=== PATIENT | female | born 1945 | race Caucasian/White ===

== ENCOUNTER → 2017-07-22 | Outpatient (CLI) | payer MEDICARE, OTHER ==
--- NOTE | 2017-07-22 15:49 | WOMENS IMAGING REPORT ---
EXAM DESCRIPTION: BILAT SCREENING MAMMO W/CAD COMPLETED DATE/TIME: 07/22/2017 1:43 pm REASON FOR STUDY: SCREENING MAMMO Z12.31 ENCNTR SCREEN MAMMOGRAM FOR MALIGNANT NEOPLASM OF RASHEED COMPARISON: 07/17/2016 and 02/26/2015. TECHNIQUE: Standard craniocaudal and mediolateral oblique views of each breast recorded using Fivetrana l acquisition. LIMITATIONS: None. FINDINGS: No masses, calcifications or architectural distortion. No areas of suspicion. Read with the assistance of CAD. .[facility] - R2 Cenova Version 1.3 .[facility] - R2 Cenova Version 1.3 .[facility] - R2 Cenova Version 2.4 .[facility] [place] R2 Cenova Version 2.4 .[facility] - R2 [employer] Version 9.2 IMPRESSION: NORMAL MAMMOGRAM. BIRADS 1. BREAST DENSITY: b. There are scattered areas of fibroglandular density. BIRAD: 1 NEGATIVE RECOMMENDATION: ROUTINE SCREENING COMMENT: The patient has been notified of the results by letter per SA requirements. Additional no tification policies are in place for contacting patient with suspicious or incomplete findings. Quality ID #[id number]: The [employer] recommends an annual screening mammogram for women aged 40 years or over. This facility utilizes a reminder system to ensure that all patients receive reminder letters, and/or direct phone calls for appointments. This includes reminders for routine scr eening mammograms, diagnostic mammograms, or other Breast Imaging Interventions when appropriate. Th is patient will be placed in the appropriate reminder system. The [employer] (ACR) has developed recommendations for screening MRI of the breast s in certain patient populations, to be used in conjunction with mammography. Breast MRI surveillanc e may be appropriate for women with more than 20% lifetime risk of developing breast cancer as deter mined by genetic testing, significant family history of the disease, or history of mantle radiation f or Hodgkins Disease. ACR Practice Guidelines 2008. TECHNICAL DOCUMENTATION: FINDING NUMBER: (1) ASSESSMENT: (1) JOB ID: [id number] [employer]- All Rights Reserved
== END ==
LOC: WI 13:04
PROVIDERS: ATTEND Family Medicine
DX: Z12.31 Encounter for screening mammogram for malignant neoplasm of breast (principal)
CPT/HCPCS: 77067; G0202

== ENCOUNTER → 2018-01-07 | Outpatient (CLI) | payer MEDICARE, OTHER ==
[2018-01-07 17:07] LABS: ABSOLUTE EOSINOPHILS # (AUTO) 0.2 10^3/uL (0.0-0.6); ABSOLUTE MONOCYTES (AUTO) 0.4 10^3/uL (0.1-1.4); BASOPHILS % (AUTO) 0.8 % (0-2); EOSINOPHILS % (AUTO) 2.9 % (0-6); HEMATOCRIT 41.8 % (36.0-47.0); HEMOGLOBIN 14.2 g/dL (12.0-15.5); LYMPHOCYTES % (AUTO) 36.2 % (13-45); MEAN CORPUSCULAR HEMOGLOBIN 31.1 pg (27.0-33.4); MEAN CORPUSCULAR HGB CONC 33.9 g/dL (32.0-36.0); MEAN CORPUSCULAR VOLUME 92 fl (80-97); MONOCYTES % (AUTO) 6.9 % (3-13); PLATELET COUNT 272 10^3/uL (150-450); RED BLOOD COUNT 4.56 10^6/uL (3.72-5.28); RED CELL DISTRIBUTION WIDTH 13.3 % (11.5-14.0); SEGMENTED NEUTROPHILS % (AUTO) 53.2 % (42-78); TOTAL CELLS COUNTED % (AUTO) 100 %; WHITE BLOOD COUNT 5.6 10^3/uL (4.0-10.5)
[2018-01-07 17:22] LABS: ALANINE AMINOTRANSFERASE 41 U/L (9-52); ALBUMIN 4.5 g/dL (3.5-5.0); ALKALINE PHOSPHATASE 93 U/L (38-126); ANION GAP 13 (5-19); ASPARTATE AMINO TRANSFERASE 29 U/L (14-36); BILIRUBIN,DIRECT 0.4 mg/dL (0.0-0.4); BILIRUBIN,TOTAL 0.4 mg/dL (0.2-1.3); BLOOD UREA NITROGEN 19 mg/dL (7-20); CALCIUM 9.9 mg/dL (8.4-10.2); CARBON DIOXIDE 28 mmol/L (22-30); CHLORIDE 102 mmol/L (98-107); CREATINE KINASE 124 U/L (30-135); GLUCOSE 87 mg/dL (75-110); POTASSIUM 4.8 mmol/L (3.6-5.0); SODIUM 143.4 mmol/L (137-145); TOTAL PROTEIN 7.2 g/dL (6.3-8.2); URIC ACID 4.9 mg/dL (2.5-7.5)
[2018-01-07 17:35] LABS: FREE T3 4.29 pg/mL (2.77-5.27); FREE T4 (FREE THYROXINE) 1.94 ng/dL (0.78-2.19)
[2018-01-07 17:49] LABS: THYROID STIMULATING HORMONE 0.15 uIU/mL (0.47-4.68)
--- NOTE | 2018-01-07 18:27 | EKG REPORT ---
SEVERITY:- ABNORMAL ECG - ATRIAL FIBRILLATION, V-RATE 60-98 : Confirmed by: Celso Laws MD 07-Jan-2018 18:26:50
== END ==
LOC: OD 15:55
PROVIDERS: ATTEND Family Medicine
DX: E03.9 Hypothyroidism, unspecified (principal); E11.9 Type 2 diabetes mellitus without complications; I10 Essential (primary) hypertension; I20.8 Other forms of angina pectoris
CPT/HCPCS: 36415; 80053; 82550; 84439; 84443; 84481; 84484; 84550; 85025; 93005; 93010

== ENCOUNTER 2018-06-11 20:36 | Emergency (ER) | payer MEDICARE, OTHER ==
[2018-06-11] MEDS ORDERED: ASPIRIN 81 MG TABLET, CHEWABLE PO ONE (20:41)
[2018-06-11] MEDS ORDERED: METHYLPREDNISOLONE INJ 125 MG/2 ML SDV IV ONE (20:58)
[2018-06-11] MEDS ORDERED: CEFTRIAXONE 1 GM/D5W RTU 1 GM/50 ML RTUPB IV ONE (20:58)
[2018-06-11] MEDS ORDERED: IPRATROPIUM/ALBUTEROL 0.5-2.5 MG/3 ML AMPUL NEB ONE (20:58)
[2018-06-11] MEDS ORDERED: NORMAL SALINE 1000 ML 1,000 ML IV ONE (21:08)
[2018-06-11 21:09] LABS: VENOUS BLOOD BASE EXCESS -1.8 mmol/L; VENOUS BLOOD HCO3 23.9 mmol/L (20-32); VENOUS BLOOD PCO2 44.1 mmHg (35-63); VENOUS BLOOD PH 7.35 (7.30-7.42)
[2018-06-11 21:11] LABS: ABSOLUTE BASOPHILS # (AUTO) 0.1 10^3/uL (0.0-0.2); ABSOLUTE EOSINOPHILS # (AUTO) 0.1 10^3/uL (0.0-0.6); ABSOLUTE MONOCYTES (AUTO) 0.5 10^3/uL (0.1-1.4); ABSOLUTE NEUT (AUTO) 8.1 10^3/uL (1.7-8.2); BASOPHILS % (AUTO) 0.6 % (0-2); EOSINOPHILS % (AUTO) 1.2 % (0-6); HEMATOCRIT 36.6 % (36.0-47.0); HEMOGLOBIN 12.5 g/dL (12.0-15.5); LYMPHOCYTES % (AUTO) 10.5 % (13-45); MEAN CORPUSCULAR HGB CONC 34.3 g/dL (32.0-36.0); MEAN CORPUSCULAR VOLUME 94 fl (80-97); MONOCYTES % (AUTO) 5.3 % (3-13); PLATELET COUNT 253 10^3/uL (150-450); RED BLOOD COUNT 3.92 10^6/uL (3.72-5.28); RED CELL DISTRIBUTION WIDTH 13.6 % (11.5-14.0); SEGMENTED NEUTROPHILS % (AUTO) 82.4 % (42-78); TOTAL CELLS COUNTED % (AUTO) 100 %; WHITE BLOOD COUNT 9.9 10^3/uL (4.0-10.5)
[2018-06-11 21:21] LABS: INTERNATIONAL RATION (INR) 1.25; PROTHROMBIN TIME 16.3 SEC (11.4-15.4)
[2018-06-11 21:29] LABS: ALANINE AMINOTRANSFERASE 47 U/L (9-52); ALBUMIN 4.4 g/dL (3.5-5.0); ALKALINE PHOSPHATASE 79 U/L (38-126); ANION GAP 14 (5-19); ASPARTATE AMINO TRANSFERASE 32 U/L (14-36); BILIRUBIN,DIRECT 0.3 mg/dL (0.0-0.4); BLOOD UREA NITROGEN 20 mg/dL (7-20); CALCIUM 9.2 mg/dL (8.4-10.2); CARBON DIOXIDE 25 mmol/L (22-30); CHLORIDE 104 mmol/L (98-107); CREATINE KINASE 139 U/L (30-135); GLUCOSE 180 mg/dL (75-110); POTASSIUM 4.4 mmol/L (3.6-5.0); SODIUM 142.5 mmol/L (137-145); TOTAL PROTEIN 7.4 g/dL (6.3-8.2)
[2018-06-11 21:41] LABS: CREATINE KINASE MB 2.78 ng/mL (<4.55)
[2018-06-11 21:44] LABS: TROPONIN I 0.417 ng/mL
[2018-06-11 21:53] LABS: APPEARANCE,URINE CLEAR; BILIRUBIN,URINE NEGATIVE (NEGATIVE); COLOR,URINE YELLOW; GLUCOSE, URINE NEGATIVE (NEGATIVE); KETONES,URINE NEGATIVE (NEGATIVE); LEUKOCYTE ESTERASE,URINE NEGATIVE (NEGATIVE); NITRITE,URINE NEGATIVE (NEGATIVE); PROTEIN,URINE NEGATIVE (NEGATIVE); URINE SPECIFIC GRAVITY 1.015; UROBILINOGEN,URINE NEGATIVE mg/dL (<2.0)
[2018-06-11] MEDS ORDERED: NITROGLYCERIN 2% OINTMENT 1 GM PACKET TP ONE (21:59)
--- NOTE | 2018-06-11 22:03 | EKG REPORT ---
SEVERITY:- ABNORMAL ECG - SINUS RHYTHM LOW VOLTAGE THROUGHOUT NONSPECIFIC T ABNORMALITIES, LATERAL LEADS : Confirmed by: Dylan Shah 11-Jun-2018 22:01:30
[2018-06-11] MEDS ORDERED: FUROSEMIDE INJ/PF 40 MG/4 ML SDV IV ONE (22:19)
--- NOTE | 2018-06-11 22:45 | RADIOLOGY REPORT (SQ) ---
Chest 2 view on 06/11/2018 at 9:41 PM CLINICAL INDICATION: Pneumonia COMPARISON: 06/11/2018 at 9:28 PM FINDINGS: There is elevation of the right hemidiaphragm. There are trace pleural effusions. Mild increased interstitial changes is suggestive of mild edema. Vascular calcification is noted in the aorta. Borderline cardiomegaly is noted. Hilar and mediastinal contours are within normal limits. IMPRESSION: Findings suggestive of very mild changes of CHF.
--- NOTE | 2018-06-11 22:48 | ER Document Report ---
ED Respiratory Problem - General Chief Complaint: Shortness Of Breath Stated Complaint: CHEST DISCOMFORT Time Seen by Provider: 06/11/18 20:47 Notes: Patient is a 72-year-old female who comes in complaining of chest pain trouble breathing. Patient has had dyspnea on exertion and trouble catching her breath walking about 10-20 feet. She is a history of A. fib and recent cardioversion at [facility] on . Have any cardiac history otherwise. He does not have stents. She has never had an CO. States that she had a recent normal stress echo in January with an ejection fraction of over 50%. Patient initially luc said that she had a cardiac cath before, which she has not had. Denies any fever or productive cough. No history of asthma COPD and patient is a lifetime non-smoker. Chest pain is currently dull. Patient took aspirin at home prior to arrival TRAVEL OUTSIDE OF THE [place] IN LAST 30 DAYS: No - HPI Patient complains to provider of: Chest pain, Short of breath Onset: Other Duration: Worse/persistent Short of Breath: Moderate Sputum amount: None - Related Data Allergies/Adverse Reactions: codeine [Codeine] Adverse Reaction (Verified 09/18/13 15:31) Past Medical History - Social History Smoking Status: Never Smoker Frequency of alcohol use: Social Family History: Reviewed & Not Pertinent Patient has suicidal ideation: No Patient has homicidal ideation: No - Past Medical History Cardiac Medical History: Reports: Hx Hypertension - MEDS Denies: Hx Heart Attack Pulmonary Medical History: Denies: Hx Asthma Neurological Medical History: Denies: Hx Cerebrovascular Accident, Hx Seizures Endocrine Medical History: Reports: Hx Hypothyroidism Renal/ Medical History: Denies: Hx Peritoneal Dialysis GI Medical History: Reports: Hx Gastroesophageal Reflux Disease. Denies: Hx Hepatitis, Hx Hiatal Hernia, Hx Ulcer Infectious Medical History: Denies: Hx Hepatitis Past Surgical History: Reports: Hx Section, Hx Orthopedic Surgery - foot, Hx Tonsillectomy. Denies: Hx Mastectomy, Hx Open Heart Surgery, Hx Pacemaker - Immunizations Immunizations up to date: Yes Review of Systems - Review of Systems Constitutional: No symptoms reported EENT: No symptoms reported Cardiovascular: See HPI Respiratory: See HPI Gastrointestinal: No symptoms reported Genitourinary: No symptoms reported Female Genitourinary: No symptoms reported Musculoskeletal: No symptoms reported Skin: No symptoms reported Hematologic/Lymphatic: No symptoms reported Neurological/Psychological: No symptoms reported Physical Exam - Vital signs Vitals: Pulse Ox 99 06/11/18 20:41 Interpretation: Normal - General General appearance: Alert In distress: Mild - HEENT Head: Normocephalic, Atraumatic Eyes: Normal Pupils: PERRL - Respiratory Respiratory status: Respiratory distress - Mild, patient is winded when talking Chest status: Nontender Breath sounds: Decreased air movement, Other - Rales at left base greater than right Chest palpation: Normal - Cardiovascular Rhythm: Regular Heart sounds: Normal auscultation Murmur: No - Abdominal Inspection: Normal Distension: No distension Bowel sounds: Normal Tenderness: Nontender Organomegaly: No organomegaly - Back Back: Normal, Nontender - Extremities General upper extremity: Normal inspection, Nontender, Normal color, Normal ROM , Normal temperature General lower extremity: Normal inspection, Nontender, Normal color, Normal ROM , Normal temperature, Normal weight bearing. No: Loretta's sign - Neurological Neuro grossly intact: Yes Cognition: Normal Orientation: AAOx4 [place] Coma Scale Eye Opening: Spontaneous Michele Coma Scale Verbal: Oriented Michele Coma Scale Motor: Obeys Commands Michele Coma Scale Total: 15 Speech: Normal Motor strength normal: LUE, RUE, LLE, RLE Sensory: Normal - Psychological Associated symptoms: Normal affect, Normal mood - Skin Skin Temperature: Warm Skin Moisture: Dry Skin Color: Normal Course - Re-evaluation Re-evalutation: 06/11/18 22:30 Patient is a 72-year-old female who comes in with chest pain trouble breathing. No history of heart failure or coronary artery disease. Patient was given 1 dose of DuoNeb and prednisone which did not help her symptoms at all. Patient had told me that she has had a negative cath and normal echo in January. She had had a nuclear stress test with a normal echo but has never had a cardiac catheterization. Patient's troponin is 0.4 and has an elevated BNP. Chest x- ray is more consistent with fluid overload. Patient has been given Lasix and Nitropaste. No further chest pain. No acute changes on initial or repeat EKG. She is taking aspirin at home. Patient was discussed with cardiology at [facility] who does not think that this is an acute CO but likely post radio version. Recommend Lasix. Discussed with the hospitalist here who is not comfortable admitting the patient. Called back to the transfer center at [facility] who will accept the patient for transfer. Patient is agreeable to this plan. Stable for transfer. Accepting physician is Dr. Claire. Of note, patient is comfortable on 2 L nasal cannula. She has not had much urine output yet from the Lasix. 23:45 Patient is medically stable for transfer. - Vital Signs Vital signs: Temp Pulse Resp BP Pulse Ox 99.8 F 99 06/11/18 20:47 06/11/18 20:41 - Laboratory Result Diagrams: 06/11/18 20:56 06/11/18 20:56 Laboratory results interpreted by me: 06/11/18 06/11/18 06/11/18 20:56 20:56 20:56 Seg Neutrophils % 82.4 H Lymphocytes % 10.5 L PT Glucose 180 H POC Glucose Creatine Kinase 139 H NT-Pro-B Natriuret Pep 1770 H 06/11/18 06/11/18 20:56 21:01 Seg Neutrophils % Lymphocytes % PT 16.3 H Glucose POC Glucose 195 H Creatine Kinase NT-Pro-B Natriuret Pep - Diagnostic Test Radiology reviewed: Reports reviewed - EKG Interpretation by Me EKG shows normal: Sinus rhythm Rate: Normal Rhythm: NSR Critical Care Note - Critical Care Note Total time excluding time spent on procedures (mins): 45 - Evaluation and management of chest pain, trouble breathing, coordination with specialist, coordination of transfer, counseling of patient, multiple re-evaluations Discharge - Discharge Clinical Impression: Troponin level elevated CHF (congestive heart failure) Qualifiers: Heart failure type: unspecified Heart failure chronicity: acute Qualified Code( s): I50.9 - Heart failure, unspecified Condition: Stable Disposition: [facility] Referrals: LUCILA LANDERS DO [Primary Care Provider] - Follow up as needed
[2018-06-12] MEDS ORDERED: METOPROLOL TARTRATE PF/INJ 5 MG/5 ML SDV IV ONE (01:27)
[2018-06-12] MEDS ORDERED: ONDANSETRON HCL INJ/PF 4 MG/2 ML SDV IV ONE (03:05)
[2018-06-12 03:40] VITALS: BP 114/80
--- NOTE | 2018-06-12 10:02 | EKG REPORT ---
SEVERITY:- ABNORMAL ECG - ATRIAL FIBRILLATION PROBABLE ANTEROSEPTAL INFARCT, AGE INDETERM BORDERLINE T ABNORMALITIES, INFERIOR LEADS LATERAL LEADS ARE ALSO INVOLVED : Confirmed by: Dylan Shah 12-Jun-2018 10:02:07
--- NOTE | 2018-06-12 10:02 | EKG REPORT ---
SEVERITY:- ABNORMAL ECG - ATRIAL FIBRILLATION, V-RATE 89-130 BORDERLINE RIGHT AXIS DEVIATION LOW VOLTAGE IN FRONTAL LEADS CONSIDER ANTEROSEPTAL INFARCT NON SPECIFIC T WAVE CHANGES : Confirmed by: Dylan Shah 12-Jun-2018 10:01:56
--- NOTE | 2018-06-12 10:03 | EKG REPORT ---
SEVERITY:- ABNORMAL ECG - SINUS RHYTHM LOW VOLTAGE THROUGHOUT NONSPECIFIC T ABNORMALITIES, ANT-LAT LEADS : Confirmed by: Dylan Shah 12-Jun-2018 10:02:22
== END 2018-06-12 03:13 | disposition short-term general hospital (02) ==
LOC: ER 20:36
DX: I11.0 Hypertensive heart disease with heart failure (principal); I50.9 Heart failure, unspecified; R74.8 Abnormal levels of other serum enzymes; R11.0 Nausea; I48.91 Unspecified atrial fibrillation; R06.02 Shortness of breath; R07.9 Chest pain, unspecified; Z79.82 Long term (current) use of aspirin
CPT/HCPCS: 93005 ×2; 94640; 99291; 96375; 96365; 36415; 87040; 87086; 82553; 82962; 82550; 85025; 85610; 80053; 81001; 84484; 82803; 83605; 83880; 71046; 93010 ×2; A9270 ×2; J1940; J2930; J3490; J2405; J7030; J0696; J7620

== ENCOUNTER → 2020-01-30 | Outpatient (CLI) | payer MEDICARE, OTHER ==
--- NOTE | 2020-01-31 08:28 | WOMENS IMAGING REPORT ---
EXAM DESCRIPTION: 3D SCREENING MAMMO BILAT IMAGES COMPLETED DATE/TIME: 01/30/2020 11:32 am REASON FOR STUDY: Z12.31 ENCOUNTER FOR SCREENING MAMMOGRAM FOR MALIGNANT NEOPLASM OF BREAST Z12.31 ENCNTR SCREEN MAMMOGRAM FOR MALIGNANT NEOPLASM OF RASHEED COMPARISON: 07/22/2017, 07/17/2016, 02/26/2015 EXAM PARAMETERS: Views: Standard craniocaudal and mediolateral oblique views of each breast recorded using digital acquisition and breast tomosynthesis. Read with the assistance of CAD. .[facility] - R2 Cenova Version 1.3 LIMITATIONS: None. FINDINGS: No suspicious masses, suspicious calcifications or architectural distortion. No areas of c oncern. IMPRESSION: NEGATIVE MAMMOGRAM. BIRADS 1. BREAST DENSITY: a. The breasts are almost entirely fatty. BIRAD: ASSESSMENT: 1 NEGATIVE RECOMMENDATION: ROUTINE SCREENING COMMENT: The patient has been notified of the results by letter per MQSA requirements. Additional no tification policies are in place for contacting patient with suspicious or incomplete findings. Quality ID #[id number]: The [employer] recommends an annual screening mammogram for women aged 40 years or over. This facility utilizes a reminder system to ensure that all patients receive reminder letters, and/or direct phone calls for appointments. This includes reminders for routine scr eening mammograms, diagnostic mammograms, or other Breast Imaging Interventions when appropriate. Th is patient will be placed in the appropriate reminder system. TECHNICAL DOCUMENTATION: FINDING NUMBER: (1) ASSESSMENT: (1) JOB ID: [id number] [employer]- All Rights Reserved Reading location - IP/workstation name: [email or web address]
== END ==
LOC: WI 11:08
PROVIDERS: ATTEND Nurse Practitioner
DX: Z12.31 Encounter for screening mammogram for malignant neoplasm of breast (principal)
CPT/HCPCS: 77063; 77067